=== PATIENT | female | born 1990 | race Caucasian/White ===

== ENCOUNTER → 2018-12-17 12:20 | Outpatient (CLI) | payer MEDICAID, SELFPAY ==
[2018-12-17 12:15] VITALS: BMI 29.9
[2018-12-17 13:14] LABS: Absolute Lymphocyte Count 1.73 X10^3/ul (0.83-4.51); Basophil# 0.01 X10^3/uL; Basophil% 0.1 % (0-1); Eosinophil# 0.12 X10^3/uL; Eosinophils% 1.4 % (0-5); Hemoglobin 11.4 g/dl (12.0-15.0); Lymphocyte # 1.73 X10^3/ul (4.0); Lymphocyte % 20.4 % (19-41); Mean Corp Hgb Conc 33.5 g/gl (32-36); Mean Corpuscular Volume 86.5 fL (81-99); Mean Platelet Vol. 9.9 fl (6.2-12.0); Monocyte# 0.62 X10^3/uL; Monocyte% 7.3 % (0-10); Neutrophil # 5.98 X10^3/uL (2.7-7.7); Neutrophil % 70.7 % (47-70); Platelet Count 246 K/mm3 (150-450); RBC Distribution Width CV 12.5 % (11.6-14.6); Red Blood Count 3.93 M/mm3 (4.2-5.4); White Blood Count 8.5 K/mm3 (4.4-11.0)
[2018-12-17 13:15] LABS: POSITIVE COUNT NO; POSITIVE DIFFERENTIAL NO; POSITIVE MORPHOLOGY NO
[2018-12-17 14:29] LABS: HIV - WCH Non-Reactive (Nonreactive)
[2018-12-17 20:00] LABS: Chlamydia Trachomatis by PCR Negative (Negative); Neisserai gonorrhoeae by PCR Negative (Negative); Probe Check PASS; Sample Adequacy Control PASS; Specimen Processing Control PASS
[2018-12-19 03:40] LABS: Rapid Plasmin Reagin (RPR) NONREACTIVE (NONREACTIVE)
[2018-12-19 12:13] LABS: HEPATITIS B SURFACE AG Negative (Negative)
== END ==
PROVIDERS: Family Provider Nurse Practitioner Family; PCP Nurse Practitioner Family; Referring Provider Nurse Practitioner Women's Health; Visit Provider Nurse Practitioner Women's Health
DX: Z34.80 Encounter for supervision of other normal pregnancy, unspecified trimester (principal)
CPT/HCPCS: 36415; 85025; 86592; 86703; 86762; 86850; 86900; 87086; 87088; 87340; 87491; 87591

== ENCOUNTER → 2019-06-12 15:44 | Outpatient (CLI) | payer MEDICAID, SELFPAY ==
[2019-06-12 15:36] VITALS: BMI 29.9
[2019-06-12 16:24] LABS: Absolute Lymphocyte Count 2.61 X10^3/uL (0.83-4.51); Absolute Neutrophil Count 8.3 X10^3/uL (2.0-7.7); Basophil# 0.02 X10^3/uL; Basophil% 0.2 % (0-1); Eosinophils% 2.4 % (0-5); Hematocrit 34.6 % (37-47); Hemoglobin 11.5 g/dL (12.0-15.0); Lymphocyte # 2.61 X10^3/ul (4.0); Lymphocyte % 21.2 % (19-41); Mean Corp Hgb Conc 33.2 g/dL (32-36); Mean Corpuscular Hgb 30.1 pg (27.0-32.0); Mean Corpuscular Volume 90.6 fL (81-99); Mean Platelet Vol. 10.2 fl (6.2-12.0); Monocyte# 0.91 X10^3/uL; Monocyte% 7.4 % (0-10); NRBC Flagged by Analyzer 0 % (0-5); Neutrophil # 8.34 X10^3/uL (2.7-7.7); Neutrophil % 67.9 % (47-70); Platelet Count 286 K/mm3 (150-450); RBC Distribution Width CV 13.1 % (11.6-14.6); RBC Distribution Width SD 42.6 fl (35.1-43.9); Red Blood Count 3.82 M/mm3 (4.2-5.4); White Blood Count 12.3 K/mm3 (4.4-11.0)
[2019-06-12 17:11] LABS: Hemoglobin A1c 5.5 % (4.2-6.3)
== END ==
PROVIDERS: Family Provider Nurse Practitioner Family; PCP Nurse Practitioner Family; Referring Provider Obstetrics & Gynecology; Visit Provider Obstetrics & Gynecology
DX: O36.60X0 Maternal care for excessive fetal growth, unspecified trimester, not applicable or unspecified (principal); Z3A.00 Weeks of gestation of pregnancy not specified
CPT/HCPCS: 36415; 83036; 85025

== ENCOUNTER → 2019-07-10 17:03 | Outpatient (CLI) | payer MEDICAID, SELFPAY ==
[2019-07-10 15:24] VITALS: BMI 29.9
== END ==
PROVIDERS: Family Provider Nurse Practitioner Family; PCP Nurse Practitioner Family; Referring Provider Obstetrics & Gynecology; Visit Provider Obstetrics & Gynecology
DX: Z34.93 Encounter for supervision of normal pregnancy, unspecified, third trimester (principal); Z3A.38 38 weeks gestation of pregnancy
CPT/HCPCS: 87081

== ENCOUNTER 2019-07-13 15:00 | Outpatient (RCR) | payer MEDICAID, SELFPAY ==
[2019-06-12 15:36] VITALS: BMI 29.9
== END 2019-07-16 23:59 ==
LOC: DC 15:00
PROVIDERS: Family Provider Nurse Practitioner Family; PCP Nurse Practitioner Family; Visit Provider Obstetrics & Gynecology
DX: Z71.3 Dietary counseling and surveillance (principal); O24.419 Gestational diabetes mellitus in pregnancy, unspecified control; Z3A.00 Weeks of gestation of pregnancy not specified
CPT/HCPCS: 97802; G0108

== ENCOUNTER → 2019-07-15 13:55 | Outpatient (CLI) | payer MEDICAID, SELFPAY ==
[2019-07-10 15:24] VITALS: BMI 29.9
--- NOTE | 2019-07-15 13:57 | US_ITS ---
STUDY: SECOND AND THIRD TRIMESTER OBSTETRICAL ULTRASOUND REASON FOR EXAM: Female, 28 years old. growth LMP: 10/16/2018 TECHNIQUE: Transabdominal TECHNICAL QUALITY: Adequate. PRIOR ULTRASOUND: None. FINDINGS: There is a single intrauterine fetus. The fetus is in a cephalic presentation. There is demonstrated cardiac activity with a heart rate of 160 bpm. There is a normal amniotic fluid volume. The largest amniotic fluid pocket measures 5.9 cm. The amniotic fluid index (RANJEET) is 18.4 cm. The placenta is anterior in location and is not low lying. There are Grade 2 placental changes. The cervix isn't visualized. BIOMETRY: BPD: 8.99 cm: 37 weeks, 2 days HC: 32.37 cm: 37 weeks, 4 days AC: 36.86 cm: 40 weeks, 5 days FL: 7.52 cm: 30 weeks, 3 days CI: 82% FL/BPD: 84% FL/AC: 20% HC/AC: 0.88 age by current US: 37 weeks, 3 days. DENNIS by current US: 08/02/2019. Estimated weight: 3717 grams, +/- 550 grams, 78 %. Age by LMP: 38 weeks, 5 days. DENNIS by LMP: 07/24/2019. US/OB Limited With Biometrics IMPRESSION: Single live intrauterine gestation at approximately 37 weeks and 3 days based on the current ultrasound. Electronically Signed: Damien Lucila, at 21:24 EDT Tel , Service support ,
== END ==
PROVIDERS: Family Provider Nurse Practitioner Family; PCP Nurse Practitioner Family; Referring Provider Obstetrics & Gynecology; Visit Provider Obstetrics & Gynecology
DX: O24.419 Gestational diabetes mellitus in pregnancy, unspecified control (principal); Z3A.00 Weeks of gestation of pregnancy not specified
CPT/HCPCS: 76816

== ENCOUNTER 2019-07-29 18:05 | Inpatient (IN) | payer MEDICAID, SELFPAY ==
[2019-07-29 14:22] VITALS: BMI 29.9
[2019-07-29 19:01] LABS: Bedside Glucose 104 mg/dL (70-110)
[2019-07-29 19:09] LABS: Absolute Neutrophil Count 8.2 X10^3/uL (2.0-7.7); Basophil# 0.04 X10^3/uL; Basophil% 0.3 % (0-1); Eosinophil# 0.45 X10^3/uL; Eosinophils% 3.6 % (0-5); Hematocrit 36.6 % (37-47); Hemoglobin 12.5 g/dL (12.0-15.0); Lymphocyte % 22.5 % (19-41); Mean Corp Hgb Conc 34.2 g/dL (32-36); Mean Corpuscular Hgb 29.8 pg (27.0-32.0); Mean Corpuscular Volume 87.1 fL (81-99); Mean Platelet Vol. 11.4 fl (6.2-12.0); Monocyte# 0.84 X10^3/uL; Monocyte% 6.8 % (0-10); NRBC Flagged by Analyzer 0 % (0-5); Neutrophil # 8.22 X10^3/uL (2.7-7.7); Neutrophil % 66.2 % (47-70); Platelet Count 254 K/mm3 (150-450); RBC Distribution Width SD 43.6 fl (35.1-43.9); White Blood Count 12.4 K/mm3 (4.4-11.0)
[2019-07-29 19:37] VITALS: BMI 35.9
[2019-07-29 20:45] LABS: Bedside Glucose 102 mg/dL (70-110)
--- NOTE | 2019-07-29 21:16 | HP.PCM_ITS ---
- Problem List (1) Active labor at term Status: Acute (2) Gestational diabetes Status: Acute (3) Status: Acute Qualifiers: Comment: carrier, ntd, and Genetic testing declined Normal anatomy (4) Supervision of other normal Status: Acute Comment: PRR DENNIS 07/24/19 PC Naida Spouse Justino home delivery, co-care with rubber goods inspector tester. History and Physical Date of Admission: 07/29/19 Intake Vital Signs 07/29/19 Body Mass Index (BMI) 29.9 07/29/19 Height 5 ft 0.5 in 07/29/19 Weight: 192 lb 07/29/19 Body Mass Index (BMI) 36.8 07/29/19 Blood Pressure 130/80 H Intake Visit Reasons: 40 week OB Chief Complaint: est ob Demolition Engineer Required: No Is patient in pain?: No Allergies No Known Allergies Allergy (Verified 07/29/19 14:21) Medications folic acid 800 mcg tablet 0.8 mg PO DAILY 12/17/18 [History Confirmed 07/29/19] ferrous sulfate 325 mg (65 mg iron) tablet 325 mg PO DAILY tab 02/18/19 [History Confirmed 07/29/19] blood sugar diagnostic strips See Rx Instructions .ROUTE .MEDSUPPLY #100 ea 05/01/19 [Rx Confirmed 07/29/19] Last Menstral Period: 10/09/18 Zika: Zika virus screening: Negative : No PFSH PFSH Family History Father Psoriatic arthritis Grandmother Diabetes Sister Ovarian cancer Social History (Updated 07/29/19 @ 21:04 by Kristel Main MD) number of children: 1 current occupational status: unemployed Smoking Status: Never smoker alcohol intake: never substance use type: does not use seatbelt use: always do you feel safe at home: Yes additional social history: to Justino - employed at [employer] Pregancy History 2 Elective abortions 0 Hx Para 1 Spontaneous abortions 0 Hx # Term Pregnancies 1 Ectopic pregnancies 0 Hx # Pregnancies 0 Multiple births 0 # of living children 1 Past Pregnancies Del. Date Name GA/Weeks Outcome Route Bth Weight Infant Gen Labor Lgth Anesthesia Del Locatn Provider FOB 03/14/18 Naida 40 live - full term 6'5.8 Female 7 hrs none Rachael Young, rubber goods inspector tester HPI 40 week OB: Details: MAJOR GONZALES is a 28 year old who presents for routine OB visit. OB Visit DENNIS Calculator Estimated Delivery Date Method Current WG Current Estimate 07/24/19 Ultrasound #1 40w 5d Other Estimates 07/16/19 LMP (Certain) 41w 6d Expected Delivery Route/Plan - cocare with Inna Walsh, planning home delivery Labor Preferences- labor support person: justino pain management options preferred: [] cut cord/dad catch: [] : [] PP control planned: [] discussed possible routes of delivery and associated risks: [] special requests: [] Specific Issue/Plans flu vaccine: declined tdap vaccine: declined declined glucola screening rhogam: na LARC form signed: [] Problem list reviewed and updated with the most current plan of care details and appropriate orders placed. Relevant counseling for the gestational age provided. Continue routine care and follow up unless otherwise noted in visit notes/problem list details Initial Weight: Not Recorded Date EGA Weight BP Urine Prot Glucose FHR FuHt Pres Mov CTX Dilation Effaced St Visit Note 01/22/19 13w 6d 162 lb 122/72 Negative Negative 150 no vb lof 02/18/19 17w 5d 164 lb 6 oz 118/70 Negative Negative 147 Had brown discharge 2 wk ago after intercourse. None since. Now plans home with Inna Walshdonny 03/31/19 23w 4d 170 lb 120/72 Negative Negative 140 no vb lof good fm no regular ctx 05/01/19 28w 0d 170 lb 102/80 Negative Negative 140 no vb lof good fm no regular ctx 06/12/19 34w 0d 184 lb 132/78 Negative Negative 140 36 measuring ahead- previously declined glucose testing recommend testing again- check cbc and hg a1c, check home blood sugars 07/10/19 38w 0d 190 lb 106/60 Negative Negative 145 38 counseling provided to patient about diabetes diagnosis and recommendation for diet and blood sugar checks. discussed risks of diabetes and complications at delivery and of going postdates. I recommend growth us and no longer than 41 weeks. patient states she would be comfortable with going past 41 weeks and I discussed that this would be against medical advice and I would not support it. I discussed increased risks of home due to diabetes diagnosis both for her and baby. patient and voiced good understanding 07/29/19 40w 5d 192 lb 130/80 Negative Negative 125 41 recommend IOL 40 weeks Visit Notes Visit Date: 07/29/19 ??recommend IOL 40 weeks ??Kristel Main MD on 07/29/19 Visit Date: 07/10/19 ??counseling provided to patient about diabetes diagnosis and recommendation for diet and blood sugar checks. discussed risks of diabetes and complications at delivery and of going postdates. I recommend growth us and no longer than 41 weeks. patient states she would be comfortable with going past 41 weeks and I discussed that this would be against medical advice and I would not support it. I discussed increased risks of home due to diabetes diagnosis both for her and baby. patient and voiced good understanding ??Kristel Main MD on 07/17/19 Visit Date: 06/12/19 ??measuring ahead- previously declined glucose testing recommend testing again- check cbc and hg a1c, check home blood sugars ??Kristel Main MD on 06/12/19 Visit Date: 05/01/19 ??no vb lof good fm no regular ctx ??Kristel Main MD on 05/01/19 Visit Date: 03/31/19 ??no vb lof good fm no regular ctx ??Kristel Main MD on 03/31/19 Visit Date: 02/18/19 ??Had brown discharge 2 wk ago after intercourse. None since. Now plans home with donny Stanley ??GEORGETTE Nguyễn on 02/18/19 Visit Date: 01/22/19 ??no vb lof ??Kristel Main MD on 01/22/19 ACOG First Trimester First Trimester: Desire for , Anticipated Course of Care, Toxoplasmosis Precations, Use of Any medications, Sexual activity, Exercise, Sauna/Hot tub use, Seat Belt use, , Indications for US and Scr eening for Aneuploidy; discussed Alcohol, discussed Tobacco Cessation, discussed Illicit/Recreational Drug/Substance Use, discussed Intimate Partner Violence, discussed Unstable Housing or discussed Environmental/Work Hazards Second Trimester Second Trimester: Signs and Symptoms of Labor, Selecting a care provider, Reproductive Life Planning, Care Planning, Tobacco Cessation, Depression/Anxiety and Intimate Partner Violence Third Trimester Third Trimester: Pain Management Plans, Labor support person(s), Immediate Post Larc, Movement Monitoring and Infant Feeding Yes ; discussed Trial of Labor after Counseling or discussed Circumcision preference Diagnostics Diagnostics Diagnostics Blood Type B POSITIVE 07/29/19 Antibody Screen NEGATIVE 07/29/19 HIV 1&2 Antibody Non-Reactive (Nonreactive) 12/17/18 Rubella IgG Antibody 263.0 IU/mL 12/17/18 Hgb 12.5 g/dL (12.0-15.0) 07/29/19 Hct 36.6 % (37-47) L 07/29/19 RPR NONREACTIVE (NONREACTIVE) 12/17/18 Details: HIV: Urine Culture: Sequential Screen: NIPT Screen: ROS Const Reports system reviewed and no additional complaints, except as docu Card Reports system reviewed and no additional complaints, except as docu Resp Reports system reviewed and no additional complaints, except as docu GI Reports system reviewed and no additional complaints, except as docu, Reports nausea Reports system reviewed and no additional complaints, except as docu Musc Reports system reviewed and no additional complaints, except as docu Exam Const General: cooperative, healthy appearing, comfortable, anxious [facility] Head: normal to inspection Nose: external nose normal Face and sinus: normal facial exam Neck Neck: normal visual inspection, full ROM, no lymphadenopathy Thyroid: thyroid normal Chest Chest palpation & inspection: normal inspection of the chest Resp Effort & Inspection: normal respiratory effort GI Inspection: normal to inspection Palpation: soft, other (gravid uterus) Other: vertex and appropriate size for gestational age Other: Cervical Exam: Extrem General: pedal edema Results [id number] Office Urine Glucose Negative Last Edit by Tiffanie Rossi on 07/29/19 14:2 6 Office Urine Protein Negative Last Edit by Tiffanie Rossi on 07/29/19 14:2 6 Assessment & Plan Problems 1. Gestational diabetes O24.419 2. 40 weeks gestation of Z3A.40 3. Supervision of other normal Z34.80 IAL 5-6 cm Orders Orders: POC Urinalysis 2 Dip (Clinic) Today Coding Level of Care Code Off vis,est,level 3 Diagnoses Gestational diabetes O24.419 40 weeks gestation of Z3A.40 ??Weeks of gestation: 40 weeks Supervision of other normal Z34.80
[2019-07-29 22:05] LABS: Bedside Glucose 128 mg/dL (70-110)
--- NOTE | 2019-07-29 22:29 | PCM.OPRPT ---
Problem List (1) Active labor at term Status: Acute (2) Gestational diabetes Status: Acute (3) Status: Acute Qualifiers: Comment: carrier, ntd, and Genetic testing declined Normal anatomy (4) Supervision of other normal Status: Acute Comment: PRR DENNIS 07/24/19 PC Naida Spouse Justino home delivery, co-care with kier drier. Vaginal Delivery Maternal Presentation: Active Labor ial 39w5d Medical Reason for Induction: Maternal Medical Condition: list: - diabetes diet controlled Amniotic Membrane Rupture Type: Spontaneous Amniotic Fluid Description: Clear Final DENNIS: 07/24/19 Gestational age: 40 Weeks and 5 Days Date of Procedure: 07/29/19 Pre-Operative Diagnosis: ial Post-Operative Diagnosis: same Surgery/ Procedure Performed: Spontaneous Vaginal Delivery Type of Anesthesia: None Description of Procedure: Patient began pushing and delivered the head in the GARRETT presentation. The head was delivered atraumatically. The anterior and posterior shoulders delivered without complication followed by the rest of the and the was placed on the maternal abdomen. Delayed cord clamping was employed for approximately 60 seconds. Cord was clamped and cut and gentle traction was applied to the cord and the placenta delivered spontaneously immediately following it was noted to be intact with three-vessel cord. The perineum and vagina were inspected and noted to have no laceration. EBL was 200 cc. Patient and tolerated delivery well. Presentation: GARRETT Placental Delivery Description: Spontaneous Placenta Disposition: [facility] Cord Vessel Description: 3 Vessels Cord Entanglement: None Estimated Blood Loss: 200 A gender: Female Episiotomy Description: None Laceration: None Medications given after delivery: IV Pitocin Complications: None Multi Select Codes - Urinary/Genital Urinary/Genital CPT Codes: 30146 Vaginal Delivery [facility] pkg
[2019-07-30 00:41] LABS: Bedside Glucose 148 mg/dL (70-110)
[2019-07-30] MEDS: Naproxen 250 MG Tablet 500 MG PO ×2 (03:10→17:38)
[2019-07-30 04:13] VITALS: BP 90/52; PULSE 62; RESP 18; TEMP 36.6; O2SAT 96
[2019-07-30 06:50] VITALS: BP 102/58
[2019-07-30 07:06] LABS: Bedside Glucose 98 mg/dL (70-110)
--- NOTE | 2019-07-30 07:58 | PCM.PN.OB ---
Patient Problems: Active and Suspected Problems (Last Reviewed 07/29/19 @ 14:22 by Tiffanie Rossi) Active labor at term (Acute) Subjective: doing well no complaints pain controlled no CP SOB N V ambulating well tolerating po lochia moderate, going well - Physical Exam Vitals/I&O's: Vital Signs Temp Pulse Resp BP Pulse Ox 98 F 62 18 102/58 L 96 07/30/19 04:13 07/30/19 04:13 07/30/19 04:13 07/30/19 06:50 07/30/19 04:13 Oxygen Delivery Method Room Air Weight: 187 lb Body Mass Index (BMI) 35.9 Intake and Output for Last 24 Hours 07/28/19 07/29/19 07/30/19 23:59 23:59 23:59 Output Total 800 / 800 500 / 500 Balance -800 / -800 -500 / -500 General: Alert, Oriented x3 Abdomen: Soft, Non Tender, - - FF below U Laboratory Results 07/29/19 18:50: WBC 12.4 H, RBC 4.20, Hgb 12.5, Hct 36.6 L, MCV 87.1, MCH 29.8, MCHC 34.2, RDW Std Deviation 43.6, RDW Coeff of Geremias 14.0, Plt Count 254, MPV 11.4, Immature Gran % (Auto) 0.600, Neut % (Auto) 66.2, Lymph % (Auto) 22.5, Caldwell % (Auto) 6.8, Eos % (Auto) 3.6, Baso % (Auto) 0.3, Absolute Neuts (auto) 8.2 H, Absolute Lymphs (auto) 2.80, Nucleated RBC % 0 07/29/19 18:50: Blood Type B POSITIVE, Antibody Screen NEGATIVE 07/29/19 18:56: POC Glucose 104 07/29/19 20:37: POC Glucose 102 07/29/19 21:57: POC Glucose 128 H 07/30/19 00:34: POC Glucose 148 H 07/30/19 06:37: POC Glucose 98 Current Medications Acetaminophen (Tylenol) 1,000 mg PO Q8H PRN PRN PRN Reason: Pain Score 1-3/10 Bisacodyl (Dulcolax) 10 mg RECTAL UD PRN PRN Reason: If no BM Dextrose (D50w Syringe) 0 gm IV X1 PRN; Protocol PRN Reason: Hypoglycemia Dibucaine (Dibucaine) 1 applic TOPICAL TID PRN PRN; Protocol PRN Reason: Discomfort Glucagon () 1 mg IM .X1 PRN PRN Reason: Hypoglycemia Hydrocortisone (Hytone) 1 applic TOPICAL TID PRN PRN; Protocol PRN Reason: Discomfort Methylergonovine Maleate (Methergine) 0.2 mg IM X1 PRN PRN Reason: Excess bleeding/uterine atony Naproxen (Naprosyn) 500 mg PO Q8H PRN PRN PRN Reason: Pain Score 1-3/10 Last Admin: 07/30/19 03:10 Dose: 500 mg Documented by: Ondansetron HCl (Zofran) 4 mg IV Q4H PRN PRN PRN Reason: Nausea Oxycodone HCl (Oxyir) 5 - 10 mg PO Q4H PRN PRN PRN Reason: Pain Score 4-10/10 Senna/Docusate Sodium (Senokot-S, Jo-Colace) 1 - 2 tablet PO DAILY PRN PRN PRN Reason: Constipation Simethicone (Mylicon) 80 mg PO PCHS PRN PRN Reason: Indigestion/Stomach pain Sodium Chloride () 5 - 15 ml IV UD PRN PRN Reason: SALINE FLUSH Medical Necessity - Tobacco Use Smoking Status: Never smoker Assessment/Plan All Active Problems (Last Reviewed 07/29/19 @ 14:22 by Tiffanie Rossi) Active labor at term (Acute) Gestational diabetes (Acute) (Acute) Supervision of other normal (Acute) s/p PPD # 1 1. routine post delivery care 2. breast feeding- support given 3. rh positive 4. rubella immune 5. last glucose reading WNL
[2019-07-30 08:45] VITALS: BP 108/64; PULSE 70; RESP 16; TEMP 36.5
[2019-07-30 11:31] VITALS: BP 112/63; RESP 14; TEMP 36.9
[2019-07-30] MEDS: Senna/Docusate Sodium 1 Tablet PO (13:08)
[2019-07-30] MEDS: Acetaminophen 500 MG Tablet 1000 MG PO (13:08)
[2019-07-30 16:05] VITALS: BP 98/54; PULSE 64; RESP 12; TEMP 36.7
--- NOTE | 2019-07-30 17:04 | CASEMGMT ---
Social Work Assessment Labor and Delivery Unit Date of Referral: 07.30.2019 Time of Referral: 343 Referred By: Dr. Main Date of Intervention: 07.30.2019 Time of Intervention: 1600 Reason for Referral: resources History obtained from: medical records, mother of baby (MOB) Lea Nguyễn, and Father of baby (FOB) Justino Nguyễn Household composition: MOB, FOB, and their older child. Plan for baby to live in this home. Home situation is reported to be safe and adequate. Patient's parent/guardian status: ENDY, age 28, is to FOB for the last 2 years. No reports of or indication of abuse or neglect in the home. MOB and FOB share 2 children now: Naida (born 03.14.2018) and Klaudia (born 07.29.2019). MOB and FOB report closely spaced pregnancies were planned, and the hope is to have 6 children. Medical History: ENDY is G2, P1 to 2 after delivering Klaudia. MOB started care with Dr. Main at 13 weeks and saw the OBGYN intermittently during , seeing clay products glazer Inna Walsh during the other times. MOB reports to have had some gestational diabetes this , and as a result of this the industrial spraypainter has suggested MOB give herself some more time between pregnancies (about 2 years) before conceiving again. Klaudia was born term, weighing 7 pounds 8 ounces. Apgars 8 and 9 at 1 and 5 minutes of life. Educational Status: ENDY graduated high school and then went on to receive an Associates Degree in mesotherapy. MOB denies any learning issues or concerns with reading and writing. Financial Status: ENDY is not currently working. FOB works fulltime at [employer] on first shift. Supplies: MOB and FOB report to have needed infant supplies including a bassinet for sleeping, car seat, clothing, diapers, wipes, and breast pump. Childcare/Caregiver(s): MOB is primary with help from FOB when home. Transportation: No reported issues. Programs/Agencies Involved: Medicaid through [employer]. Active with WIC. MOB declines [facility] referral but accepting of information on said program. Children Services/Legal Issues: None reported. Behavioral Health Issues: Mental Health History: MOB denies any history of depression, anxiety, or depression. MOB reports may have had periods of time where felt some different emotions., but nothing that sought out treatment for, and denies any depression or anxiety. Substance Use History: MOB denies any history of substance use issues for self. No tobacco use. Family History: Not discussed. FOB denies any substance use issues for self. FOB reports may have been worried after the first baby due to being a first-time dad and unsure as to what to expect. FOB reports to be feeling more confident the second time around. Drug Screens: No drug screens noted for MOB prenatally or for baby at delivery. Family/Social Stressors: Closely spaced pregnancies, though MOB and FOB both reports this was planned. MOB reports would like to have children close together so can get this part of life done with and not have to keep extending it for years. MOB reports she has been advised to wait 2 years for the next . MOB reports she will try to hold off as long as she can, maybe a year or so, but not sure she will be willing to hold off for two. FOB interjected that he wants MOB to be safe and healthy, so would support waiting if this is in the best interest in MOB?s overall health. No other stressors identified at this time. Support Systems: MOB reports PAWAN is a strong support. Family is involved with [place] [employer], a jewish synagogue (FOB?s family is of Fazal background and MOB is from a [employer] background). MOB reports to have her family close by and they are supportive. PAWAN has brother who lives 20 minutes away and is supportive, taking care of Naida while parents are at the hospital. Depression/Shaken Baby/Safe Sleeping: Information given on shaken baby prevention, safe sleeping, and mood and anxiety disorders. ASSESSMENT: Met with MOB and FOB together. Initially upon social media campaign manager?s arrival there were visitors from the family?s synagogue present, but visitors offered to leave so social media campaign manager could visit. MOB and FOB both cooperative and pleasant during social work visit. MOB would at times take time to answer questions, and would have to focus on what she was saying to which MOB self-identified that she was feeling tired. MOB was logical in thought process and did have well thought out responses, especially about care and experience. MOB talked of going through the grieving process early on in having to accept that a hospital delivery may be necessary. MOB reports to feel that her experience with [facility] labor and delivery has been positive, glad she has a relationship with Dr. Main prior to coming in, as well as appreciates that could have her industrial spraypainter present and supported at time of delivery. MOB and FOB both report to have needed supplies, reports to have adequate support from family and friends. FOB will be home from work for a short time to help out. MOB and FOB accepted community resource list of agencies that may be helpful. Educated family to the food card through [employer] and encouraged to consider this as an option to look into should income become tight. MOB and FOB deny other needs for home going. Observed FOB to be respectful to MOB and contributed to conversation at appropriate times. Observed both parents handle the baby, and both were gentle and appropriate. MOB and FOB both listed to education on depression and anxiety, as well as that both moms and dads can be impacted by said topic. PLAN: MOB and baby to home when ready for discharge. [facility] resource information given as well as mood and anxiety disorder resources. No other services requested or indicated. -LEONOR Arnett, [employer]
[2019-07-30 20:23] VITALS: BP 130/77; PULSE 81; RESP 16; TEMP 36.9
[2019-07-31] VITALS: BP 126/71; PULSE 57; RESP 16; TEMP 37.2
[2019-07-31 03:59] VITALS: BP 101/59; PULSE 63; RESP 16; TEMP 36.8
--- NOTE | 2019-07-31 07:43 | PCM.PN.OB ---
Patient Problems: Active and Suspected Problems (Last Reviewed 07/29/19 @ 14:22 by Tiffanie Rossi) Active labor at term (Acute) Subjective: doing well no complaints pain controlled no CP SOB N V ambulating well tolerating po lochia moderate, going well - Physical Exam Vitals/I&O's: Vital Signs Temp Pulse Resp BP Pulse Ox 98.3 F 63 16 101/59 L 96 07/31/19 03:59 07/31/19 03:59 07/31/19 03:59 07/31/19 03:59 07/30/19 04:13 Oxygen Delivery Method Room Air Weight: 187 lb Body Mass Index (BMI) 35.9 Intake and Output for Last 24 Hours 07/29/19 07/30/19 07/31/19 23:59 23:59 23:59 Output Total 800 / 800 500 / 500 Balance -800 / -800 -500 / -500 General: Alert, Oriented x3 Abdomen: Soft, Non Tender, - - FF below U Current Medications Acetaminophen (Tylenol) 1,000 mg PO Q8H PRN PRN PRN Reason: Pain Score 1-3/10 Last Admin: 07/30/19 13:08 Dose: 1,000 mg Documented by: Bisacodyl (Dulcolax) 10 mg RECTAL UD PRN PRN Reason: If no BM Dextrose (D50w Syringe) 0 gm IV X1 PRN; Protocol PRN Reason: Hypoglycemia Dibucaine (Dibucaine) 1 applic TOPICAL TID PRN PRN; Protocol PRN Reason: Discomfort Glucagon () 1 mg IM .X1 PRN PRN Reason: Hypoglycemia Hydrocortisone (Hytone) 1 applic TOPICAL TID PRN PRN; Protocol PRN Reason: Discomfort Methylergonovine Maleate (Methergine) 0.2 mg IM X1 PRN PRN Reason: Excess bleeding/uterine atony Naproxen (Naprosyn) 500 mg PO Q8H PRN PRN PRN Reason: Pain Score 1-3/10 Last Admin: 07/30/19 17:38 Dose: 500 mg Documented by: Ondansetron HCl (Zofran) 4 mg IV Q4H PRN PRN PRN Reason: Nausea Oxycodone HCl (Oxyir) 5 - 10 mg PO Q4H PRN PRN PRN Reason: Pain Score 4-10/10 Senna/Docusate Sodium (Senokot-S, Jo-Colace) 1 - 2 tablet PO DAILY PRN PRN PRN Reason: Constipation Last Admin: 07/30/19 13:08 Dose: 2 tablet Documented by: Simethicone (Mylicon) 80 mg PO HS PRN PRN Reason: Indigestion/Stomach pain Sodium Chloride () 5 - 15 ml IV UD PRN PRN Reason: SALINE FLUSH Medical Necessity - Tobacco Use Smoking Status: Never smoker Assessment/Plan All Active Problems (Last Reviewed 07/29/19 @ 14:22 by Tiffanie Rossi) Active labor at term (Acute) Gestational diabetes (Acute) (Acute) Supervision of other normal (Acute) s/p PPD # 2 1. routine post delivery care 2. breast feeding- support given 3. rh positive 4. rubella immune 5. home today
--- NOTE | 2019-07-31 07:44 | DCINST_ITS ---
Additional Instructions: If you experience any of the following, contact your healthcare provider. * Bleeding that soaks a pad every hour for 2 hours * Fever 100.4 or higher * Unrelieved incision or abdominal pain * Swelling, redness, discharge or bleeding from your incision or episiotomy site * Your incision begins to separate * Problems urinating (including inability to urinate or burning while urinating). * Visual changes * Severe headache * Flu-like symptoms * Pain or redness in one of both of your breasts * Pain, warmth, tenderness or swelling in your legs, especially the calf area * Frequent nausea and vomiting * Symptoms of depression or anxiety If you experience any of the following, call 911 or go to the nearest Emergency Room. * Chest pain * Problems breathing * Seizure activity * Partial or complete paralysis of a body part, slurred speech, weakness or drooping of the face, or a sudden inability to walk or hold your balance Allergies/Adverse Reactions: Allergies No Known Allergies Allergy (Verified 07/29/19 14:21) Medications to take at Discharge folic acid 800 mcg tablet 0.8 mg PO DAILY 12/17/18 ferrous sulfate 325 mg (65 mg iron) tablet 325 mg PO DAILY tab 02/18/19 blood sugar diagnostic strips See Rx Instructions .ROUTE .MEDSUPPLY #100 ea 05/01/19 Primary Care Physician: Roman Mott NP-C [Primary Care Provider] - Test Results: Test results from this visit will be discussed in further detail at your follow- up appointment, if applicable.
--- NOTE | 2019-07-31 07:44 | PCM.DCVAG ---
Additional Instructions: If you experience any of the following, contact your healthcare provider. Bleeding that soaks a pad every hour for 2 hours Fever 100.4 or higher Unrelieved incision or abdominal pain Swelling, redness, discharge or bleeding from your incision or episiotomy site Your incision begins to separate Problems urinating (including inability to urinate or burning while urinating). Visual changes Severe headache Flu-like symptoms Pain or redness in one of both of your breasts Pain, warmth, tenderness or swelling in your legs, especially the calf area Frequent nausea and vomiting Symptoms of depression or anxiety If you experience any of the following, call 911 or go to the nearest Emergency Room. Chest pain Problems breathing Seizure activity Partial or complete paralysis of a body part, slurred speech, weakness or drooping of the face, or a sudden inability to walk or hold your balance Allergies/Adverse Reactions: Allergies No Known Allergies Allergy (Verified 07/29/19 14:21) Medications to take at Discharge folic acid 800 mcg tablet 0.8 mg PO DAILY 12/17/18 ferrous sulfate 325 mg (65 mg iron) tablet 325 mg PO DAILY tab 02/18/19 blood sugar diagnostic strips See Rx Instructions .ROUTE .MEDSUPPLY #100 ea 05/01/19 Primary Care Physician: Roman Mott, KENNY-C [Primary Care Provider] - Test Results: Test results from this visit will be discussed in further detail at your follow-up appointment, if applicable.
[2019-07-31 08:45] VITALS: BP 111/66; PULSE 61; RESP 24; TEMP 37.2; O2SAT 95
[2019-07-31] MEDS: Naproxen 250 MG Tablet 500 MG PO (08:45)
[2019-07-31 14:00] VITALS: BP 110/66; PULSE 67; TEMP 36.5; O2SAT 96
--- NOTE | 2019-08-04 11:49 | NURSING ---
follow up call done, patient states she is doing well, was satisfied with her care, denies complaints or questions at this time
== END 2019-07-31 14:40 | disposition home or self-care (01) | DRG 560 ==
PROVIDERS: Admitting Provider Obstetrics & Gynecology; Family Provider Nurse Practitioner Family; PCP Nurse Practitioner Family; Referring Provider Obstetrics & Gynecology; Visit Provider Obstetrics & Gynecology
DX: O24.420 Gestational diabetes mellitus in childbirth, diet controlled (principal); Z3A.40 40 weeks gestation of pregnancy; Z37.0 Single live birth
CPT/HCPCS: 59050; 82962; 85025; 86850; 86900; 86901; 99218; G0378

== ENCOUNTER → 2020-10-27 10:12 | Outpatient (CLI) | payer MEDICAID, SELFPAY ==
[2020-10-27 09:42] VITALS: BMI 25.7
[2020-10-27 10:52] LABS: Absolute Lymphocyte Count 1.95 X10^3/uL (0.83-4.51); Absolute Neutrophil Count 5.1 X10^3/uL (2.0-7.7); Basophil# 0.03 X10^3/uL; Basophil% 0.4 % (0-1); Eosinophil# 0.16 X10^3/uL; Eosinophils% 2.1 % (0-5); Hematocrit 37.1 % (37-47); Hemoglobin 12.5 g/dL (12.0-15.0); Lymphocyte # 1.95 X10^3/ul (4.0); Lymphocyte % 25.5 % (19-41); Mean Corp Hgb Conc 33.7 g/dL (32-36); Mean Corpuscular Hgb 29.8 pg (27.0-32.0); Mean Corpuscular Volume 88.3 fL (81-99); Mean Platelet Vol. 9.4 fl (6.2-12.0); Monocyte# 0.41 X10^3/uL; Monocyte% 5.4 % (0-10); NRBC Flagged by Analyzer 0 % (0-5); Neutrophil # 5.08 X10^3/uL (2.7-7.7); Neutrophil % 66.3 % (47-70); Platelet Count 305 K/mm3 (150-450); RBC Distribution Width CV 12.4 % (11.6-14.6); RBC Distribution Width SD 40.4 fl (35.1-43.9); White Blood Count 7.7 K/mm3 (4.4-11.0)
[2020-10-27 11:21] LABS: Glucose Challenge Gest 1H 50g 116 mg/dL (70-140)
[2020-10-27 12:04] LABS: HIV - WCH Non-Reactive (Nonreactive); Hepatitis B Surface Antigen Non-Reactive (Nonreactive); Hepatitis C Antibody Non-Reactive (Nonreactive); Rubella IgG Reactive (Nonreactive)
[2020-10-27 14:06] LABS: Amphetamine Urine VISTA NEGATIVE (<1000 ng/mL); Barbiturate Urine VISTA NEGATIVE (< 200 ng/mL); Benzodiazepine Urine VISTA NEGATIVE (< 200 ng/mL); Cocaine Urine VISTA NEGATIVE (< 300 ng/mL); Ecstacy Urine VISTA NEGATIVE (< 500 ng/mL); Methadone Urine VISTA NEGATIVE (< 300 ng/mL); PCP Urine VISTA NEGATIVE (< 25 ng/mL); THC Urine VISTA NEGATIVE (< 50 ng/mL); Vista UDS pH Range 6
[2020-10-29 03:07] LABS: Chlamydia By Nucleic Acid AMP Negative (Negative)
[2020-10-29 11:50] LABS: Gonococcus By Nucleic Acid AMP Negative (Negative)
[2020-11-02 17:01] LABS: HPV Reflexed? NOT INDICATED
[2020-11-03 01:10] LABS: Rapid Plasmin Reagin (RPR) NONREACTIVE (NONREACTIVE)
== END ==
PROVIDERS: PCP Nurse Practitioner Family; Referring Provider Obstetrics & Gynecology; Visit Provider Obstetrics & Gynecology
DX: O09.299 Supervision of pregnancy with other poor reproductive or obstetric history, unspecified trimester (principal); Z86.32 Personal history of gestational diabetes; Z12.4 Encounter for screening for malignant neoplasm of cervix; Z3A.00 Weeks of gestation of pregnancy not specified
CPT/HCPCS: 36415; 80307; 82950; 85025; 86592; 86703; 86762; 86803; 86850; 86900; 86901; 87086; 87088; 87340; 87491; 87591; 88175; G0145

== ENCOUNTER → 2020-11-07 14:29 | Outpatient (CLI) | payer MEDICAID, SELFPAY ==
[2020-10-27 09:42] VITALS: BMI 25.7
--- NOTE | 2020-11-07 14:31 | US_ITS ---
STUDY: FIRST TRIMESTER OBSTETRICAL ULTRASOUND REASON FOR EXAM: Female, 30 years old dating LMP: 09/03/2020. TECHNIQUE: Transvaginal TECHNICAL QUALITY: Adequate. PRIOR ULTRASOUND: None. FINDINGS: There is visualization of a single gestational sac in a normal intrauterine position. The mean sac diameter (MSD) measures 1.71 cm, indicating an estimated gestational age (EGA) of 6 weeks, 4 days. The gestational sac shape is within normal limits. There is a visualized yolk sac. The yolk sac measures 4 mm. The placenta is non-visualized. There is visualization of a live embryo. The crown-rump length (CRL) measures 7 mm, indicating an estimated gestational age (EGA) of 6 weeks, 4 days. There is demonstrated cardiac activity with a heart rate of 129 bpm. The estimated gestation age (EGA) by LMP is 9 weeks, 2 days. The estimated date of delivery (DENNIS) by LMP is 06/10/2021. The estimated gestation age (EGA) by US is 6 weeks, 4 days. The estimated date of delivery (DENNIS) by US is 06/29/2021. The uterus measures 10.3 cm x 7.5 cm x 5.3 cm. There is no demonstrated uterine fibroid. The cervix is closed. The right ovary measures 3.1 cm x 1.6 cm x 1.2 cm. There is no right ovarian cyst. There is no visualized right adnexal mass or complex lesion. The left ovary measures 3.3 cm x 1.7 cm x 1.7 cm. There is no left ovarian cyst. There is no visualized left adnexal mass or complex lesion. There is no fluid in the cul de sac. US/Init OB < 14Wks US IMPRESSION: Single live intrauterine gestation with a mean gestational age of 6 weeks and 4 days. Electronically Signed: Rashard Mckeon MD at 15:18 EST , Service support ,
== END ==
PROVIDERS: PCP Nurse Practitioner Family; Referring Provider Obstetrics & Gynecology; Visit Provider Obstetrics & Gynecology
DX: Z34.80 Encounter for supervision of other normal pregnancy, unspecified trimester (principal)
CPT/HCPCS: 76801

== ENCOUNTER → 2021-04-11 10:11 | Outpatient (CLI) | payer MEDICAID, SELFPAY ==
[2021-02-15 11:21] VITALS: BMI 29.1
[2021-04-11 10:36] LABS: Absolute Lymphocyte Count 1.53 X10^3/uL (0.83-4.51); Absolute Neutrophil Count 6.2 X10^3/uL (2.0-7.7); Basophil# 0.02 X10^3/uL; Basophil% 0.2 % (0-1); Eosinophil# 0.14 X10^3/uL; Eosinophils% 1.7 % (0-5); Hematocrit 30.7 % (37-47); Hemoglobin 10.7 g/dL (12.0-15.0); Lymphocyte # 1.53 X10^3/ul (0.83-4.51); Lymphocyte % 18.3 % (19-41); Mean Corp Hgb Conc 34.9 g/dL (32-36); Mean Corpuscular Hgb 32.4 pg (27.0-32.0); Mean Platelet Vol. 9.7 fl (6.2-12.0); Monocyte# 0.39 X10^3/uL; Monocyte% 4.7 % (0-10); NRBC Flagged by Analyzer 0 % (0-5); Neutrophil # 6.23 X10^3/uL (2.7-7.7); Neutrophil % 74.3 % (47-70); Platelet Count 216 K/mm3 (150-450); RBC Distribution Width SD 44.3 fl (35.1-43.9); White Blood Count 8.4 K/mm3 (4.4-11.0)
[2021-04-11 10:58] LABS: Glucose Challenge Gest 1H 50g 202 mg/dL (70-140)
== END ==
PROVIDERS: Obstetrics & Gynecology; PCP Nurse Practitioner Family; Referring Provider Obstetrics & Gynecology; Visit Provider Obstetrics & Gynecology
DX: Z34.80 Encounter for supervision of other normal pregnancy, unspecified trimester (principal)
CPT/HCPCS: 36415; 82950; 85025

== ENCOUNTER → 2021-06-30 | Outpatient (CLI) | payer MEDICAID, SELFPAY | END | disposition home or self-care (01) | LOC: LABSPEC 12:38 | PROVIDERS: PCP Nurse Practitioner Family; Referring Provider Obstetrics & Gynecology; Visit Provider Obstetrics & Gynecology | DX: Z34.80 Encounter for supervision of other normal pregnancy, unspecified trimester (principal) | CPT/HCPCS: 87081 ==

== ENCOUNTER 2021-07-07 10:45 | Inpatient (IN) | payer MEDICAID, SELFPAY ==
[2021-07-07] VITALS (18 sets, daily range): BP systolic 86–119; BP diastolic 45–65; PULSE 56–96; RESP 16; TEMP 36.3–36.8; O2SAT 94–98; BMI 31.6
[2021-07-07] MEDS: Lactated Ringers 1,000 ML 999 ML IV ×2 (11:15→20:18)
[2021-07-07 11:35] LABS: Bedside Glucose 96 mg/dL (70-110)
[2021-07-07 11:35] LABS: Absolute Lymphocyte Count 1.69 X10^3/uL (0.83-4.51); Absolute Neutrophil Count 11.5 X10^3/uL (2.0-7.7); Basophil# 0.03 X10^3/uL; Basophil% 0.2 % (0-1); Eosinophil# 0.07 X10^3/uL; Eosinophils% 0.5 % (0-5); Hematocrit 35.3 % (37-47); Hemoglobin 12.7 g/dL (12.0-15.0); Lymphocyte # 1.69 X10^3/ul (0.83-4.51); Lymphocyte % 11.8 % (19-41); Mean Corpuscular Hgb 32.6 pg (27.0-32.0); Mean Corpuscular Volume 90.5 fL (81-99); Mean Platelet Vol. 10.7 fl (6.2-12.0); Monocyte# 0.81 X10^3/uL; Monocyte% 5.7 % (0-10); NRBC Flagged by Analyzer 0 % (0-5); Neutrophil # 11.53 X10^3/uL (2.7-7.7); Neutrophil % 80.7 % (47-70); Platelet Count 253 K/mm3 (150-450); RBC Distribution Width CV 12.9 % (11.6-14.6); RBC Distribution Width SD 42.7 fl (35.1-43.9); White Blood Count 14.3 K/mm3 (4.4-11.0)
[2021-07-07] MEDS: Oxytocin 30 units/NS 500 ml 30 UNITS/500 ML IV.SOLN 167 UNITS IV (12:30)
[2021-07-07] MEDS: Ketorolac 30 MG/ML Syringe IV ×2 (13:40→19:03)
--- NOTE | 2021-07-07 13:55 | HP.PCM.OB_ITS ---
HPI - General General Date of Admission: 07/07/21 HPI Narrative MAJOR GONZALES, is a 30 F who presents IAL breech and 7 cm dilated, was laboring at home with a clay mixer chris walsh. Maternal Data Information DENNIS Calculator Estimated Delivery Date Method Current [facility] Medical History Family history of hearing loss at age younger than 7 years H/O gestational diabetes in prior , currently Home Medications folic acid 800 mcg tablet 0.8 mg PO DAILY 12/17/18 [History Last Taken Unknown] ferrous sulfate 325 mg (65 mg iron) tablet 325 mg PO DAILY tab 02/18/19 [History Last Taken Unknown] lancets 28 gauge #120 ea 04/13/21 [Rx Last Taken Unknown] blood sugar diagnostic #150 ea 04/28/21 [Rx Last Taken Unknown] True Metrix Glucose Meter #1 ea NS 05/08/21 [Rx Last Taken Unknown] blood sugar diagnostic #150 ea 05/08/21 [Rx Last Taken Unknown] cholecalciferol (vitamin D3) 1,250 mcg (50,000 unit) capsule 1,250 mcg PO .q 2 weeks cap 05/09/21 [History Last Taken Unknown] naproxen 500 mg PO BID PRN PRN #30 tab 07/09/21 [Rx Last Taken Unknown] oxycodone-acetaminophen [Endocet] 1 tab PO Q4H PRN 7 Days #20 tab 07/09/21 [Rx Last Taken Unknown] Allergy/AdvReac Type Severity Reaction Status Date / Time No Known Allergies Allergy Verified 07/20/21 08:58 Family History Father Psoriatic arthritis Grandmother Diabetes Sister Ovarian cancer Family History no significant family his Surgical History no surgical history Social History number of children: 2 current occupational status: other current occupation: Homemaker Smoking Status: Never smoker alcohol intake: never substance use type: does not use seatbelt use: always do you feel safe at home: Yes additional social history: to Justino - employed at [employer] History 3 Elective abortions 0 Hx Para 3 Spontaneous abortions 0 Hx # Term Pregnancies 3 Ectopic pregnancies 0 Hx # Pregnancies 0 Multiple births 0 # of living children 3 Past Pregnancies Del. Date Name GA/Weeks Outcome Route Bth Weight Gen Labor Lgth Anesthesia Del Locatn Provider FOB 03/14/18 Naida 40 live - full term 6'5.8 Female 7 hrs none Rachael Carranza Ruben Young, supervisor sandblaster 07/29/19 [place] 40 live - full term 7lbs 8oz Female 5 h ours none [facility] 07/07/21 Kristel 40 live - full term 6lbs 11oz Female spinal [facility] Dr. Main Delivery Date: 03/14/18 No notes to display Delivery Date: 07/29/19 Clara Naik Delivery Date: 07/07/21 LTCS breech 8cm, GDMA1 Miranda Paredes Visit Details Expected Delivery Route/Plan cocare with Chris Walsh plan home Labor Preferences- CB/BF classes: no labor support person: Justino labor intervention preferences: [] pain management options preferred: [] cut cord/dad catch: [] : [] PP control planned: [] discussed possible routes of delivery and associated risks: [] special requests: [] Plans covid status: non immune, counseled regarding risk of covid in vs vaccination and declined vaccination flu vaccine: declined tdap vaccine: declines rhogam: na LARC form signed: yes movement and labor precautions reviewed. Problem list reviewed and updated with the most current plan of care details and appropriate orders placed. Relevant counseling for the gestational age provided. Continue routine care and follow up unless otherwise noted in visit notes/problem list details OB Flowsheet Initial Weight: 130 lb Date -?-?-?-?-?-?-?-?-?-?-?-?- EGA Weight BP Urine Prot -?-?-?-?-?-?-?-?-?-?-?-?- Glucose FHR FuHt Pres Dilation -?-?-?-?-?-?-?-?-?-?-?-?- Effaced St Visit Note 10/27/20 -?-?-?-?-?-?-?-?-?-?-?-?- 4w 0d 132 lb (+2 lb) 108/80 -?-?-?-?-?-?-?-?-?-?-?-?- -?-?-?-?-?-?-?-?-?-?-?-?- SM- CRL cons wit h LMP SM- CRL NOT cons with LMP, y olk sac seen 7 mm GS 11/25/20 -?-?-?-?-?-?-?-?-?-?-?-?- 8w 1d 134 lb (+4 lb) 122/80 Negative -?-?-?-?-?-?-?-?-?-?-?-?- Negative 160 -?-?-?-?-?-?-?-?-?-?-?-?- SM- no vb lof cr amping SM- no vb lof cramping CRL 17 mm on abdominal scan 02/15/21 -?-?-?-?-?-?-?-?-?-?-?-?- 19w 6d 149 lb 4 oz (+19 lb 4 oz) 130/72 Negative -?-?-?-?-?-?-?-?-?-?-?-?- Negative 150 -?-?-?-?-?-?-?-?-?-?-?-?- GP - no ctx, LOF , VB, DFM. Seeing supervisor sandblaster for next visit. GCT given today to be done at 28 weeks. 04/11/21 -?-?-?-?-?-?-?-?-?-?-?-?- 27w 5d 155 lb (+25 lb) 100/70 -?-?-?-?-?-?-?-?-?-?-?-?- 140 29 -?-?-?-?-?-?-?-?-?-?-?-?- SM- no vb lof go od fm n oregular ctx discussed gct findings start diabetic diet and testing, will discuss with supervisor sandblaster about diagnosis and delivery care plan 04/27/21 -?-?-?-?-?-?-?-?-?-?-?-?- 30w 0d 156 lb 4 oz (+26 lb 4 oz) 124/60 Negative -?-?-?-?-?-?-?-?-?-?-?-?- Negative 161 30 -?-?-?-?-?-?-?-?-?-?-?-?- MH-No Vb, LOF. G ood FM. BS as WNL. Has not seen Dr Higgins or dietitian. Appt arranged. Declines tdap. Larc. 05/09/21 -?-?-?-?-?-?-?-?-?-?-?-?- 31w 5d 161 lb (+31 lb) 116/64 Negative -?-?-?-?-?-?-?-?-?-?-?-?- Negative 151 32 -?-?-?-?-?-?-?-?-?-?-?-?- MH-No Vb, LOF. Good FM. BS well controlled, seeing Dr Higgins. Patient declines growth US at 36, plans 1 more visit with and then home delivery/care with Chris Walsh 06/05/21 -?-?-?-?-?-?-?-?-?-?-?-?- 35w 4d 167 lb 8 oz (+37 lb 8 oz) 118/78 Negative -?-?-?-?-?-?-?-?-?-?-?-?- Negative 140 35 -?-?-?-?-?-?-?-?-?-?-?-?- SM- no vb lof go od fm no reuglar ctx. BS reviewed and well controlled. discussed with patient i recommend a 36 week growth scan, patient declines. I discussed increased risks of shoulder dystocia, labor protraction, neaonatal nerve injury or , and that the size of the baby may influence the decision to deliver at home, patient states she feels comfortable with the risk and declines testing, but would be open to it at 40 weeks. I discussed that diabetic patients should be delivered by 40 weeks, patient states she will think about this. I will review care plan with Chris Walsh her supervisor sandblaster. 06/30/21 -?-?-?-?-?-?-?-?-?-?-?-?- 39w 1d 167 lb 4 oz (+37 lb 4 oz) 110/78 Negative -?-?-?-?-?-?-?-?-?-?-?-?- Negative 135 39 Cephalic 0 .5 -?-?-?-?-?-?-?-?-?-?-?-?- 40 -3 GP - no LO F, VB, DFM, ctx. Discussed IOL by 41w. Encouraged to return for visit at 40w. GBS done today. 07/07/21 -?-?-?-?-?-?-?-?-?-?-?-?- 40w 3d 164 lb 12.8 oz (+34 lb 12.8 oz) 119/65 92/45 92/45 93/50 90/55 97/60 98/61 95/63 96/61 95/58 96/57 93/57 94/50 89/48 86/52 -?-?-?-?-?-?-?-?-?-?-?-?- -?-?-?-?-?-?-?-?-?-?-?-?- NST FHR Rate Baby A Baseline: 130 Variability:: Moderate Accelerations:: 15 x 15 Decelerations:: None NST Reactive:: Yes FHR Category:: Category I Uterine Activity:: irregular ROS Constitutional Constitutional: Reports systems reviewed and no addt'l complaints, except as documented Eyes Eyes: Denies change in vision ENT HEENT: Reports systems reviewed and no addt'l complaints, except as documented; Denies headache(s) Cardiovascular Cardiovascular: Reports systems reviewed and no addt'l complaints, except as documented; Denies chest pain or dyspnea Respiratory/Chest Respiratory/Chest: Reports systems reviewed and no addt'l complaints, except as documented Gastrointestinal Gastrointestinal: Reports systems reviewed and no addt'l complaints, except as documented; Denies abdominal pain Genitourinary Genitourinary: Reports systems reviewed and no addt'l complaints, except as documented, contractions Details: present (irregular) and movement Details: present; Denies dysuria or genital lesions Musculoskeletal Musculoskeletal: Reports systems reviewed and no addt'l complaints, except as documented Neurologic Neurologic: Reports systems reviewed and no addt'l complaints, except as documented Endocrine Endocrinology: Reports systems reviewed and no addt'l complaints, except as documented Vital Signs Vital Signs Vital Signs: 07/07/21 12:28 07/07/21 12:30 07/07/21 12:41 Temperature 97.5 F L 98.2 F 97.5 F L Temperature Source Temporal Temporal Temporal Pulse Rate 83 83 66 Respiratory Rate 16 16 16 Respiratory Pattern Normal Blood Pressure 92/45 L 92/45 L 93/50 L Blood Pressure Mean 60 60 64 Blood Pressure Source Monitor Monitor Monitor Blood Pressure Position Supine Semi-Fowlers Semi-Fowlers Blood Pressure Location Left Arm Left Arm Left Arm Baseline BP 119/55 119/55 119/55 Pulse Ox 98 97 95 Oxygen Delivery Method Room Air Room Air Room Air 07/07/21 12:56 07/07/21 13:11 07/07/21 13:30 Temperature 97.3 F L 98.1 F Temperature Source Temporal Temporal Pulse Rate 63 57 L 62 Respiratory Rate 16 16 16 Respiratory Pattern Blood Pressure 90/55 L 97/60 98/61 Blood Pressure Mean 66 72 73 Blood Pressure Source Monitor Monitor Monitor Blood Pressure Position Semi-Fowlers Semi-Fowlers Semi-Fowlers Blood Pressure Location Left Arm Left Arm Left Arm Baseline BP 119/55 119/55 119/55 Pulse Ox 95 95 95 Oxygen Delivery Method Room Air Room Air Room Air 07/07/21 13:45 Temperature 98.0 F Temperature Source Temporal Pulse Rate 58 L Respiratory Rate 16 Respiratory Pattern Blood Pressure 95/63 Blood Pressure Mean 73 Blood Pressure Source Monitor Blood Pressure Position Semi-Fowlers Blood Pressure Location Right Arm Baseline BP 119/55 Pulse Ox 94 Oxygen Delivery Method Room Air Weight Weight: 164 lb 12.8 oz Body Mass Index (BMI) 31.6 Physical Exam Const alert, oriented x3, no apparent distress and healthy appearing HEENT normocephalic and moist oral mucous membranes Head and Scalp: atraumatic Neck full ROM, no lymphadenopathy, supple and thyroid normal General: trachea midline Lymph Lymphatic: no lymphadenopathy noted Chest inspection of chest normal Resp normal respiratory effort Cardio regular rate GI normal to inspection, nondistended, normoactive bowel sounds, soft to palpation and non-tender Inspection: gravid external exam normal Manual OB Exam: estimated gestational size appropriate, presentation breech, dilated, effaced and station Extremity normal to inspection General Extremity: Negative for edema Skin no rashes or lesions noted Neuro no focal motor deficits and deep tendon reflexes 2+ bilaterally Motor Exam: strength 5/5 throughout and clonus absent Psych mental status grossly normal Labs Labs Labs: Blood Type B POSITIVE Antibody Screen NEGATIVE Hct 30.6 % (37-47) L Hgb 10.6 g/dL (12.0-15.0) L Obstetrics US Rubella IgG Antibody Reactive (Nonreactive) Hep Bs Antigen Non-Reactive (Nonreactive) Neisseria gonorrhoeae DNA (ZACK) Negative (Negative) HIV 1&2 Antibody Non-Reactive (Nonreactive) C.trachomatis DNA (PCR) Negative (Negative) Glucose 1 Hr 50 gm 202 mg/dL (70-140) H Rhogam given: No Assessment & Plan (1) Active labor at term: (2) Breech presentation: PLAN: proceed with immedaite LTCS
--- NOTE | 2021-07-07 13:56 | OP.PCM_ITS ---
Assessment & Plan (1) delivery delivered: COMMENT: SM cs breech girl 40 (2) : QUALIFIERS: Weeks of gestation: 39 weeks Qualified Code(s): Z3A.39 - 39 weeks gestation of COMMENT: declines genetic, carrier and AFP, anatomy nl but AC noted as 94%. cocare with Inna Walsh, patient requests home . GBS NEG (3) Supervision of other normal : COMMENT: PRR DENNIS: 06/29/21 PC: [place] Pascal Spouse: Justino (4) Gestational diabetes mellitus (GDM): QUALIFIERS: Gestational diabetes mellitus control: diet-controlled Trimester: third trimester Qualified Code(s): O24.410 - Gestational diabetes mellitus in , diet controlled COMMENT: home BS monitoring with diet control. patient declined 36 week growth scan. discussed risks of home with diabetes and patient is still wanting to proceed with homebirth. will discuss with metal grinder Inna Walsh. Maternal Data Information DENNIS Calculator Estimated Delivery Date Method Current WG Current Estimate 07/06/21 Ultrasound #2 40w 1d Other Estimates 06/10/21 LMP (Certain) 43w 6d 06/29/21 Ultrasound #1 41w 1d Final DENNIS Source: LMP Details Operative Information Date of Procedure: 07/07/21 Pre-Operative Diagnosis: breech 8 cm in labor Post-Operative Diagnosis: same Indications for : Breech Classification: LASHA Procedure Type: low transverse Type of Anesthesia: Spinal Special Medications: none Antibiotic Given: Ancef 2 grams IV x1 Drain: Euceda to straight drain Estimated Blood Loss: 600 Fluids Replaced: crystalloid Findings Description of Procedure: Spinal anesthesia was placed without difficulty. Euceda catheter was placed. The patient was placed in the dorsal supine position with leftward tilt. Patient was prepped and draped in the normal sterile fashion. Pfannenstiel skin incision was made with the scalpel and carried through to the underlying layer of fascia with the scalpel. Fascia was nicked in the midline and the incision extended laterally. The rectus bellies were dissected off superiorly and inferiorly with out complication both sharply and bluntly. The peritoneum was entered digitally. The incision was stretched and a low transverse uterine incision was made with the scalpel. The buttox was delivered atraumatically and the right and left legs were swept anteriorly and delivered, followed by the body and the arms which were swept anteriorly and delivered. Gentle traction was placed on the mentum to flex the head which was delivered without complication. The cord was clamped and cut and the was handed off to awaiting nurse. The placenta was delivered spontaneously immediately following and was noted to be intact and have a three-vessel cord. The uterus was exteriorized cleared of all clots and debris, and the incision was closed in a double layer closure using #1 Monocryl. The ovaries and fallopian tubes were noted to be within normal limits. The uterus was returned to the maternal abdomen and gutters were cleared of all clots and debris. The peritoneum was closed with 3-0 Monocryl in a running fashion. Gloves were changed prior to fascial closure. Fascia was closed with 0 PDS in a running fashion. Subcutaneous tissue was copiously irrigated and the skin was closed with 3-0 Monocryl in a subcuticular fashion. Mepilex dressing was applied without complication. Patient was taken to recovery in stable condition. It was discussed with the patient that based on the clinical information obtained during this encounter, combined with her history, at this time I would recommend vaginal or cesareans for future deliveries if further pregnancies are desired. Amniotic Membrane Rupture Type: Artificial Amniotic Fluid Description: Clear Placenta Disposition: [facility] Cord Vessel Description: 3 Vessels Cord Entanglement: None Delayed Cord Clamping: Yes Complications Risks of Surgery Discussed w/Patient: Bleeding, Infection and Injury to surrounding structure(s) including bowel and bladder Vaginal Delivery Complication Complications: None Admit VTE Documentation VTE Present on Admission: No VTE Mechan Device Prophylaxis: SCD's Procedures Urinary/Genital [id number]: [id number] delivery+PP Care([facility])
[2021-07-07 14:11] LABS: Bedside Glucose 90 mg/dL (70-110)
[2021-07-07] MEDS: Acetaminophen 500 MG Tablet 1000 MG PO ×2 (14:42→20:20)
[2021-07-07] MEDS: Lactated Ringers 1,000 ML 100 ML IV (15:38)
[2021-07-08] VITALS (7 sets, daily range): BP systolic 88–112; BP diastolic 47–65; PULSE 63–78; RESP 16; TEMP 36.1–36.9; O2SAT 95–96
[2021-07-08] MEDS: Lactated Ringers 1,000 ML 999 ML IV (00:23)
[2021-07-08 00:24] LABS: Hematocrit 30.6 % (37-47); Hemoglobin 10.6 g/dL (12.0-15.0); Mean Corp Hgb Conc 34.6 g/dL (32-36); Mean Corpuscular Hgb 32.2 pg (27.0-32.0); Mean Platelet Vol. 10.6 fl (6.2-12.0); Platelet Count 202 K/mm3 (150-450); RBC Distribution Width CV 13.1 % (11.6-14.6); RBC Distribution Width SD 44.9 fl (35.1-43.9); Red Blood Count 3.29 M/mm3 (4.2-5.4); White Blood Count 13.7 K/mm3 (4.4-11.0)
[2021-07-08] MEDS: Ketorolac 30 MG/ML Syringe IV ×2 (01:59→07:56)
[2021-07-08] MEDS: Lactated Ringers 1,000 ML 100 ML IV (01:59)
[2021-07-08] MEDS: Acetaminophen 500 MG Tablet 1000 MG PO ×4 (01:59→20:13)
[2021-07-08] MEDS: 0.9% Saline Lock 10 ML Syringe IV (07:56)
[2021-07-08 08:16] LABS: Bedside Glucose 79 mg/dL (70-110)
[2021-07-08] MEDS: Senna/Docusate Sodium 1 Tablet PO (10:24)
[2021-07-08] MEDS: Naproxen 500 MG Tablet PO ×2 (16:01→23:39)
[2021-07-09 01:43] VITALS: BP 105/60; PULSE 60; RESP 15; TEMP 36.3; O2SAT 95
[2021-07-09] MEDS: Acetaminophen 500 MG Tablet 1000 MG PO ×2 (02:26→08:15)
--- NOTE | 2021-07-09 07:01 | PCM.PN.OB ---
Subjective Subjective late entry- seen 8:40 am 07/08- lochia appropriate no CP SOB N V ambulating tolerating po Objective Data Objective Data Vital Signs: Vital Signs Temp Pulse Resp BP Pulse Ox 97.4 F L 60 15 105/60 95 07/09/21 01:43 07/09/21 01:43 07/09/21 01:43 07/09/21 01:43 07/09/21 01:43 Oxygen Delivery Method Room Air Weight: 164 lb 12.8 oz Body Mass Index (BMI) 31.6 Intake & Output: Intake and Output for Last 24 Hours 07/07/21 07/08/21 07/09/21 23:59 23:59 23:59 Intake Total 1966.3 / 1966.3 2080.00 / 2080.00 Output Total 1350 / 1350 2500 / 2500 Balance 616.3 / 616.3 -420.00 / -420.00 Lab / Micro Data Result Diagrams: 07/08/21 00:22 Labs: Laboratory Results - last 24 hr 07/08/21 07:47: POC Glucose 79 ROS Constitutional Constitutional: Reports systems reviewed and no addt'l complaints, except as documented Cardiovascular Cardiovascular: Reports systems reviewed and no addt'l complaints, except as documented Respiratory/Chest Respiratory/Chest: Reports systems reviewed and no addt'l complaints, except as documented Gastrointestinal Gastrointestinal: Reports systems reviewed and no addt'l complaints, except as documented Physical Exam Const alert, oriented x3 and no apparent distress HEENT Head and Scalp: atraumatic Resp normal respiratory effort GI soft to palpation and non-tender Inspection: incision intact, healing well and drainage (none) Bimanual Exam - Vag & Uterus: uterus non-tender Uterus Palpation: uterus fundus firm (below Umbilicus) Assessment & Plan (1) delivery delivered: COMMENT: SM cs breech girl 40 (2) : QUALIFIERS: Weeks of gestation: 39 weeks Qualified Code(s): Z3A.39 - 39 weeks gestation of COMMENT: declines genetic, carrier and AFP, anatomy nl but AC noted as 94%. cocare with Inna Walsh, patient requests home . GBS NEG (3) Supervision of other normal : COMMENT: PRR DENNIS: 06/29/21 PC: [place] Pascal Spouse: Justino (4) Gestational diabetes mellitus (GDM): QUALIFIERS: Gestational diabetes mellitus control: diet-controlled Trimester: third trimester Qualified Code(s): O24.410 - Gestational diabetes mellitus in , diet controlled COMMENT: home BS monitoring with diet control. patient declined 36 week growth scan. discussed risks of home with diabetes and patient is still wanting to proceed with homebirth. will discuss with attendant self service store Inna Walsh. PLAN: s/p LTCS PPD # 1 1. routine post care 2. breast feeding- support given 3. rh positive 4. rubella immune
--- NOTE | 2021-07-09 07:03 | PCM.PN.OB ---
Subjective Subjective Patient doing well without complaints. Tolerating PO. Ambulating and voiding without difficulty. feeding well. Denies chest pain, shortness of breath, calf pain/swelling, fevers, chills, lightheadedness. Objective Data Objective Data Vital Signs: Vital Signs Temp Pulse Resp BP Pulse Ox 97.4 F L 60 15 105/60 95 07/09/21 01:43 07/09/21 01:43 07/09/21 01:43 07/09/21 01:43 07/09/21 01:43 Oxygen Delivery Method Room Air Weight: 164 lb 12.8 oz Body Mass Index (BMI) 31.6 Intake & Output: Intake and Output for Last 24 Hours 07/07/21 07/08/21 07/09/21 23:59 23:59 23:59 Intake Total 1966.3 / 1966.3 2080.00 / 2080.00 Output Total 1350 / 1350 2500 / 2500 Balance 616.3 / 616.3 -420.00 / -420.00 Lab / Micro Data Result Diagrams: 07/08/21 00:22 Labs: Laboratory Results - last 24 hr 07/08/21 07:47: POC Glucose 79 ROS Constitutional Constitutional: Reports systems reviewed and no addt'l complaints, except as documented Cardiovascular Cardiovascular: Reports systems reviewed and no addt'l complaints, except as documented Respiratory/Chest Respiratory/Chest: Reports systems reviewed and no addt'l complaints, except as documented Gastrointestinal Gastrointestinal: Reports systems reviewed and no addt'l complaints, except as documented Physical Exam Const alert, oriented x3 and no apparent distress HEENT Head and Scalp: atraumatic Resp normal respiratory effort GI soft to palpation and non-tender Inspection: incision intact, healing well and drainage (none) Bimanual Exam - Vag & Uterus: uterus non-tender Uterus Palpation: uterus fundus firm (below Umbilicus) Assessment & Plan (1) delivery delivered: COMMENT: SM cs breech girl 40 PLAN: s/p LTCS PPD # 2 1. routine post care 2. breast feeding- support given 3. rh positive 4. rubella immune
--- NOTE | 2021-07-09 07:04 | DCINST_ITS ---
Discharge Instructions Diet Discharge Diet: No restrictions Activity Discharge Activity: May Not Drive (for 2 weeks or while taking narcotic pain medications.), May Shower and May Take a Tub Bath (in 7 days) May shower in (days): 0 May resume sexual activity in: 4-6 weeks Weight Bearing Status: Full weight bearing Lifting Restrictions: 20 pounds Dressing / Incision Call your doctor if your incision/area has: Continuous Slow Oozing, Sudden Increased Bleeding, Increased Pain/ Swelling, Increased Redness and Foul Smelling Discharge Call your doctor if you observe: Fever of 101 or Higher and Using more than 1 pad per hour (for 2 hours) Suture Line Care: Avoid Pulling/Pushing and Avoid Pinching/Bending Cleanse incision/area with: Soap & Water and Keep Dressing Clean & Dry Follow Up Care Please Follow Up With: Kristel Main MD When: Call [phone] to make an appointment for an incision check in 1-2 weeks. Test Results: Test results from this visit will be discussed in further detail at your follow-up appointment, if applicable. Discharge Plan Admission Admit Date/Time: 07/07/21 10:45 Primary Reason for Your Visit: section Attending Provider: Kristel Main Primary Care Provider: Roman Mott [employer]SULT[employer] Discharge Orders/Prescriptions Prescriptions: New oxycodone-acetaminophen [Endocet] 5-325 mg tablet 1 tab PO Q4H PRN (Reason: pain) 7 Days Qty: 20 RF: 0 naproxen [naproxen] 500 MG tablet 500 mg PO BID PRN PRN (Reason: Pain) Qty: 30 RF: 1 Continued folic acid 800 mcg tablet 0.8 mg PO DAILY RF: 0 ferrous sulfate 325 mg (65 mg iron) tablet 325 mg PO DAILY RF: 0 (DME) OneTouch Ultra Test Strip See Rx Instructions .ROUTE .MEDSUPPLY Qty: 150 RF: 3 cholecalciferol (vitamin D3) 1,250 mcg (50,000 unit) capsule 1,250 mcg PO .q 2 weeks RF: 0 (DME) lancets [Advanced Travel Lancets] 28 gauge misc See Rx Instructions .ROUTE .MEDSUPPLY Qty: 120 RF: 3 (DME) blood-glucose meter [True Metrix Glucose Meter] Misc See Rx Instructions .ROUTE .MEDSUPPLY Qty: 1 RF: 0 (DME) True Metrix Glucose Test Strip Strip See Rx Instructions .ROUTE .MEDSUPPLY Qty: 150 RF: 3 Referrals / Follow Up: Roman Mott NP, [employer]SULT[facility] [Primary Care Provider] - Disposition Disposition (needs filled in before D/C Order can be placed): Home, Self Care
[2021-07-09 08:10] VITALS: BP 120/65; PULSE 63; RESP 16; TEMP 36.4; O2SAT 96
[2021-07-09] MEDS: Naproxen 500 MG Tablet PO (08:15)
== END 2021-07-09 11:15 | disposition home or self-care (01) | DRG 540 ==
PROVIDERS: Admitting Provider Obstetrics & Gynecology; PCP Nurse Practitioner Family; Visit Provider Obstetrics & Gynecology
DX: O32.1XX0 Maternal care for breech presentation, not applicable or unspecified (principal); O24.420 Gestational diabetes mellitus in childbirth, diet controlled; Z3A.40 40 weeks gestation of pregnancy; Z37.0 Single live birth
CPT/HCPCS: 59025; 59050; 82962; 85025; 85027; 86850; 86900; 86901; 99218; 99251; J7120; A4216; G0378; G0463

== ENCOUNTER → 2022-09-25 | Outpatient (CLI) | payer MEDICAID, SELFPAY ==
[2022-09-25 12:50] LABS: Absolute Neutrophil Count 7.8 X10^3/uL (2.0-7.7); Basophil# 0.03 X10^3/uL; Basophil% 0.3 % (0-1); Eosinophil# 0.15 X10^3/uL; Eosinophils% 1.4 % (0-5); Hematocrit 35.8 % (37-47); Hemoglobin 12.1 g/dL (12.0-15.0); Lymphocyte % 20.4 % (19-41); Mean Corp Hgb Conc 33.8 g/dL (32-36); Mean Corpuscular Hgb 29.5 pg (27.0-32.0); Mean Corpuscular Volume 87.3 fL (81-99); Mean Platelet Vol. 9.4 fl (6.2-12.0); Monocyte# 0.61 X10^3/uL; Monocyte% 5.6 % (0-10); NRBC Flagged by Analyzer 0 % (0-5); Neutrophil # 7.77 X10^3/uL (2.7-7.7); Neutrophil % 71.9 % (47-70); Platelet Count 268 K/mm3 (150-450); RBC Distribution Width CV 12.1 % (11.6-14.6); RBC Distribution Width SD 38.5 fl (35.1-43.9); White Blood Count 10.8 K/mm3 (4.4-11.0)
[2022-09-28 06:07] LABS: Chlamydia By Nucleic Acid AMP Negative (Negative)
[2022-09-28 16:17] LABS: Gonococcus By Nucleic Acid AMP Negative (Negative)
== END | disposition home or self-care (01) ==
PROVIDERS: PCP Nurse Practitioner Family; Referring Provider Obstetrics & Gynecology; Visit Provider Obstetrics & Gynecology
DX: O20.0 Threatened abortion (principal)
CPT/HCPCS: 36415; 84702; 85025; 86850; 86900; 86901; 87491; 87591

== ENCOUNTER → 2022-09-27 | Outpatient (CLI) | payer MEDICAID, SELFPAY | END | disposition home or self-care (01) | LOC: LAB 16:11 | PROVIDERS: PCP Nurse Practitioner Family; Referring Provider Obstetrics & Gynecology; Visit Provider Obstetrics & Gynecology | DX: O20.0 Threatened abortion (principal) | CPT/HCPCS: 36415; 84702 ==

== ENCOUNTER → 2022-10-10 | Outpatient (CLI) | payer MEDICAID, SELFPAY ==
[2022-10-10 12:42] LABS: hCG Titer Quant., Serum 2753 mIU/mL (1-3)
== END | disposition home or self-care (01) ==
LOC: PAVLAB 11:05
PROVIDERS: PCP Nurse Practitioner Family; Referring Provider Obstetrics & Gynecology; Visit Provider Obstetrics & Gynecology
DX: O03.4 Incomplete spontaneous abortion without complication (principal)
CPT/HCPCS: 36415; 84702

== ENCOUNTER → 2022-10-17 | Outpatient (CLI) | payer MEDICAID, SELFPAY ==
[2022-10-17 09:33] LABS: hCG Titer Quant., Serum 348 mIU/mL (1-3)
== END | disposition home or self-care (01) ==
PROVIDERS: PCP Nurse Practitioner Family; Referring Provider Obstetrics & Gynecology; Visit Provider Obstetrics & Gynecology
DX: O03.4 Incomplete spontaneous abortion without complication (principal)
CPT/HCPCS: 36415; 84702

== ENCOUNTER → 2022-10-24 | Outpatient (CLI) | payer MEDICAID, SELFPAY ==
[2022-10-24 09:41] LABS: hCG Titer Quant., Serum 97 mIU/mL (1-3)
== END | disposition home or self-care (01) ==
PROVIDERS: PCP Nurse Practitioner Family; Referring Provider Obstetrics & Gynecology; Visit Provider Obstetrics & Gynecology
DX: O03.4 Incomplete spontaneous abortion without complication (principal)
CPT/HCPCS: 36415; 84702

== ENCOUNTER → 2022-10-31 | Outpatient (CLI) | payer MEDICAID, SELFPAY ==
[2022-10-31 09:45] LABS: hCG Titer Quant., Serum 35 mIU/mL (1-3)
== END | disposition home or self-care (01) ==
LOC: PAVLAB 08:49
PROVIDERS: PCP Nurse Practitioner Family; Referring Provider Obstetrics & Gynecology; Visit Provider Obstetrics & Gynecology
DX: O03.4 Incomplete spontaneous abortion without complication (principal)
CPT/HCPCS: 36415; 84702

== ENCOUNTER → 2022-11-07 | Outpatient (CLI) | payer MEDICAID, SELFPAY ==
[2022-11-07 09:41] LABS: hCG Titer Quant., Serum 11 mIU/mL (1-3)
== END | disposition home or self-care (01) ==
PROVIDERS: PCP Nurse Practitioner Family; Referring Provider Obstetrics & Gynecology; Visit Provider Obstetrics & Gynecology
DX: O03.4 Incomplete spontaneous abortion without complication (principal)
CPT/HCPCS: 36415; 84702

== ENCOUNTER → 2022-11-14 | Outpatient (CLI) | payer MEDICAID, SELFPAY ==
[2022-11-14 09:48] LABS: hCG Titer Quant., Serum 5 mIU/mL (1-3)
== END | disposition home or self-care (01) ==
LOC: PAVLAB 08:43
PROVIDERS: PCP Nurse Practitioner Family; Referring Provider Obstetrics & Gynecology; Visit Provider Obstetrics & Gynecology
DX: O03.4 Incomplete spontaneous abortion without complication (principal)
CPT/HCPCS: 36415; 84702

== ENCOUNTER → 2024-01-02 | Outpatient (CLI) | payer MEDICAID, SELFPAY ==
[2024-01-02 14:37] LABS: Absolute Lymphocyte Count 2.61 X10^3/uL (0.83-4.51); Absolute Neutrophil Count 7.3 X10^3/uL (2.0-7.7); Basophil# 0.03 X10^3/uL; Basophil% 0.3 % (0-1); Eosinophil# 0.17 X10^3/uL; Eosinophils% 1.6 % (0-5); Hematocrit 32.6 % (37-47); Hemoglobin 11.1 g/dL (12.0-15.0); Lymphocyte # 2.61 X10^3/ul (0.83-4.51); Lymphocyte % 24.1 % (19-41); Mean Corpuscular Hgb 29.8 pg (27.0-32.0); Mean Corpuscular Volume 87.6 fL (81-99); Monocyte# 0.71 X10^3/uL; Monocyte% 6.6 % (0-10); NRBC Flagged by Analyzer 0 % (0-5); Neutrophil # 7.26 X10^3/uL (2.7-7.7); Platelet Count 225 K/mm3 (150-450); RBC Distribution Width SD 38.6 fl (35.1-43.9); Red Blood Count 3.72 M/mm3 (4.2-5.4); White Blood Count 10.8 K/mm3 (4.4-11.0)
[2024-01-02 15:06] LABS: Hemoglobin A1c 4.9 % (3.8-5.6)
[2024-01-02 17:09] LABS: HIV - WCH Non-Reactive (Nonreactive); Hepatitis B Surface Antigen Non-Reactive (Nonreactive); Hepatitis C Antibody Non-Reactive (Nonreactive); Rubella IgG Reactive (Nonreactive); Syphilis Antibodies Non-reactive
[2024-01-06 01:06] LABS: Chlamydia By Nucleic Acid AMP Negative (Negative); Gonococcus By Nucleic Acid AMP Negative (Negative)
[2024-01-08 08:11] LABS: HPV APTIMA, High Risk Negative (Negative)
== END | disposition home or self-care (01) ==
PROVIDERS: PCP Nurse Practitioner Family; Referring Provider Advanced Practice Midwife; Visit Provider Advanced Practice Midwife
DX: O09.90 Supervision of high risk pregnancy, unspecified, unspecified trimester (principal); Z86.32 Personal history of gestational diabetes; Z3A.00 Weeks of gestation of pregnancy not specified; Z12.4 Encounter for screening for malignant neoplasm of cervix
CPT/HCPCS: 36415; 83036; 85025; 86703; 86762; 86780; 86803; 86850; 86900; 86901; 87086; 87088; 87340; 87491; 87591; 87624; 88175; G0145

== ENCOUNTER → 2024-05-27 | Outpatient (CLI) | payer MEDICAID, SELFPAY ==
[2024-05-27 15:50] LABS: Absolute Lymphocyte Count 1.91 X10^3/uL (0.83-4.51); Basophil# 0.03 X10^3/uL; Basophil% 0.3 % (0-1); Eosinophil# 0.16 X10^3/uL; Eosinophils% 1.8 % (0-5); Hematocrit 29.6 % (37-47); Hemoglobin 10.1 g/dL (12.0-15.0); Lymphocyte # 1.91 X10^3/ul (0.83-4.51); Lymphocyte % 21.8 % (19-41); Mean Corp Hgb Conc 34.1 g/dL (32-36); Mean Corpuscular Hgb 31.4 pg (27.0-32.0); Mean Corpuscular Volume 91.9 fL (81-99); Mean Platelet Vol. 9.2 fl (6.2-12.0); Monocyte# 0.48 X10^3/uL; Monocyte% 5.5 % (0-10); NRBC Flagged by Analyzer 0 % (0-5); Neutrophil # 6.01 X10^3/uL (2.7-7.7); Neutrophil % 68.8 % (47-70); Platelet Count 284 K/mm3 (150-450); RBC Distribution Width CV 13.5 % (11.6-14.6); RBC Distribution Width SD 45.1 fl (35.1-43.9); Red Blood Count 3.22 M/mm3 (4.2-5.4); White Blood Count 8.8 K/mm3 (4.4-11.0)
[2024-05-27 16:10] LABS: Glucose Challenge Gest 1H 50g 175 mg/dL (70-140)
[2024-05-27 16:44] LABS: HIV - WCH Non-Reactive (Nonreactive); Syphilis Antibodies Non-reactive
== END | disposition home or self-care (01) ==
LOC: LAB 15:32
PROVIDERS: PCP Nurse Practitioner Family; Referring Provider Advanced Practice Midwife; Visit Provider Advanced Practice Midwife
DX: Z34.90 Encounter for supervision of normal pregnancy, unspecified, unspecified trimester (principal); Z3A.24 24 weeks gestation of pregnancy
CPT/HCPCS: 36415; 82950; 85025; 86703; 86780

== ENCOUNTER → 2024-06-05 | Outpatient (CLI) | payer MEDICAID, SELFPAY ==
[2024-06-05 10:45] LABS: Bedside Glucose 80 mg/dL (74-106)
[2024-06-05 11:49] LABS: Glucose GTT-Gestation. Fasting 84 mg/dL (<105)
[2024-06-05 12:10] LABS: Glucose GTT-Gestational 1 Hr 204 mg/dL (<190)
[2024-06-05 12:50] LABS: Glucose GTT-Gestational 2 Hr 189 mg/dL (<165)
[2024-06-05 14:35] LABS: Glucose GTT-Gestational 3 Hr 152 L (<145)
== END | disposition home or self-care (01) ==
LOC: LAB 09:58
PROVIDERS: PCP Nurse Practitioner Family; Referring Provider Obstetrics & Gynecology; Visit Provider Obstetrics & Gynecology
DX: O99.810 Abnormal glucose complicating pregnancy (principal); Z3A.00 Weeks of gestation of pregnancy not specified
CPT/HCPCS: 36415; 82951; 82952; 82962

== ENCOUNTER 2024-07-02 11:00 | Outpatient (CLI) | payer MEDICAID, SELFPAY ==
--- NOTE | 2024-07-02 11:23 | US_ITS ---
EXAM: US BIOPHYSICAL PROFILE WITHOUT NON-STRESS TESTING CLINICAL INDICATION: nonreactive NST TECHNIQUE: Real-time ultrasound of the maternal pelvis for biophysical profile evaluation with image documentation. COMPARISON: None this . FINDINGS: PRESENTATION: Breech. LOWER UTERINE SEGMENT: Not optimally seen. PLACENTA: Anterior, grade 0. No evidence of acute complication. HEART RATE: 145 bpm. RANJEET: 15.3, largest fluid pocket 5.8 cm. BREATHING MOVEMENTS: Present. Score 2/2. GROSS BODY MOVEMENTS: Present. Score 2/2. TONE: Present. Score 2/2. QUALITATIVE AMNIOTIC FLUID VOLUME: Within normal limits. Score 2/2. US/Biophysical Prof W/O Non Stres IMPRESSION: Normal biophysical profile ultrasound. Score 8/8. Breech presentation. Electronically Signed: Saloni Oro MD at 17:07 EDT ,
--- NOTE | 2024-07-07 07:07 | OB.TRI.PN ---
Progress Notes Date of Service: 07/02/24 Progress Note: Patient presents for triage evaluation secondary to non reactive nst, for extended monitoring FHT: 145 Moderate variability reactive no decelerations category I tracing [place]: no regualr Contractions Assessment and plan: non reactive nst in office, now reactive and reassuring Reactive NST, reassuring maternal and status patient discharged to home to follow-up as scheduled. See problem list details for additional plan information. Charges/Coding Procedures Urinary/Genital [id number]: 52729-25 non-stress test Interp Assessment & Plan (1) Gestational diabetes mellitus: COMMENT: ON Insulin (2) : QUALIFIERS: Weeks of gestation: 34 weeks Qualified Code(s): Z3A.34 - 34 weeks gestation of COMMENT: discussed genetic & carrier testing(undecided at this time) (3) Supervision of high-risk : QUALIFIERS: Trimester: second trimester Qualified Code(s): O09.92 - Supervision of high risk , unspecified, second trimester COMMENT: PRR, , DENNIS 08/17/24, [place] Barrios Eliza (4) Non-reactive NST (non-stress test):
== END 2024-07-02 13:00 | disposition home or self-care (01) ==
LOC: WPOUT 11:18 → WP 11:20
PROVIDERS: PCP Nurse Practitioner Family; Referring Provider Obstetrics & Gynecology; Visit Provider Obstetrics & Gynecology
DX: O24.419 Gestational diabetes mellitus in pregnancy, unspecified control (principal); Z3A.34 34 weeks gestation of pregnancy
CPT/HCPCS: 59025; 59050; 76819; 99221; G0378

== ENCOUNTER → 2024-07-23 | Outpatient (CLI) | payer MEDICAID, SELFPAY | END | disposition home or self-care (01) | LOC: LABSPEC 10:57 | PROVIDERS: PCP Nurse Practitioner Family; Referring Provider Advanced Practice Midwife; Visit Provider Advanced Practice Midwife | DX: Z34.93 Encounter for supervision of normal pregnancy, unspecified, third trimester (principal) | CPT/HCPCS: 87081 ==

== ENCOUNTER 2024-08-11 07:16 | Inpatient (IN) | payer MEDICAID, SELFPAY ==
[2024-08-11] VITALS (37 sets, daily range): BP systolic 100–129; BP diastolic 50–78; PULSE 68–111; RESP 16; TEMP 36.2–37.2; O2SAT 94–100; BMI 35.9
[2024-08-11 08:13] LABS: Absolute Lymphocyte Count 1.89 X10^3/uL (0.83-4.51); Absolute Neutrophil Count 6.6 X10^3/uL (2.0-7.7); Basophil# 0.04 X10^3/uL; Basophil% 0.4 % (0-1); Eosinophil# 0.18 X10^3/uL; Eosinophils% 1.9 % (0-5); Hematocrit 31.4 % (37-47); Lymphocyte # 1.89 X10^3/ul (0.83-4.51); Mean Corpuscular Hgb 31.8 pg (27.0-32.0); Mean Corpuscular Volume 90.8 fL (81-99); Mean Platelet Vol. 10.3 fl (6.2-12.0); Monocyte# 0.64 X10^3/uL; Monocyte% 6.8 % (0-10); NRBC Flagged by Analyzer 0 % (0-5); Neutrophil # 6.56 X10^3/uL (2.7-7.7); Neutrophil % 69.6 % (47-70); Platelet Count 219 K/mm3 (150-450); RBC Distribution Width CV 13.8 % (11.6-14.6); RBC Distribution Width SD 45.8 fl (35.1-43.9); Red Blood Count 3.46 M/mm3 (4.2-5.4); White Blood Count 9.4 K/mm3 (4.4-11.0)
[2024-08-11 08:33] LABS: Bedside Glucose 111 mg/dL (74-106)
[2024-08-11 08:51] LABS: Syphilis Antibodies Non-reactive
[2024-08-11] MEDS: 0.9% Normal Saline Single 100 ML IV.SOLN. INTRA-UTER (09:12)
[2024-08-11] MEDS: Lactated Ringers 1,000 ML 50 ML IV (09:12)
[2024-08-11] MEDS: Oxytocin 15 Units/NS 250ml 15 UNITS/250 ML IV.SOLN 2 UNITS IV (09:13)
[2024-08-11 09:36] LABS: Bedside Glucose 89 mg/dL (74-106)
[2024-08-11 10:32] LABS: Bedside Glucose 85 mg/dL (74-106)
[2024-08-11 14:45] LABS: Bedside Glucose 86 mg/dL (74-106)
[2024-08-11 18:13] LABS: Bedside Glucose 75 mg/dL (74-106)
[2024-08-11 19:13] LABS: Bedside Glucose 92 mg/dL (74-106)
[2024-08-11] MEDS: Oxytocin 15 Units/NS 250ml 15 UNITS/250 ML IV.SOLN 83 UNITS IV (20:05)
[2024-08-11 20:11] LABS: Bedside Glucose 109 mg/dL (74-106)
[2024-08-11] MEDS: Acetaminophen 500 MG Tablet 1000 MG PO (23:49)
[2024-08-12 03:32] VITALS: BP 118/79; PULSE 80; RESP 16; TEMP 36.4
[2024-08-12] MEDS: Acetaminophen 500 MG Tablet 1000 MG PO (05:22)
[2024-08-12 06:10] LABS: Bedside Glucose 90 mg/dL (74-106)
[2024-08-12 08:51] VITALS: BP 106/72; PULSE 68; RESP 16; TEMP 36.4; O2SAT 96
[2024-08-12 11:58] VITALS: BP 119/71; PULSE 57; RESP 16; TEMP 36.1; O2SAT 96
[2024-08-12 16:40] VITALS: BP 115/81; PULSE 71; RESP 16; TEMP 37; O2SAT 97
[2024-08-12 20:58] VITALS: BP 123/75; PULSE 74; RESP 16; TEMP 36.9; O2SAT 98
== END 2024-08-12 21:57 | disposition home or self-care (01) | DRG 560 ==
PROVIDERS: Admitting Provider Obstetrics & Gynecology; PCP Nurse Practitioner Family; Referring Provider Obstetrics & Gynecology; Visit Provider Obstetrics & Gynecology
DX: O24.414 Gestational diabetes mellitus in pregnancy, insulin controlled (principal); Z37.0 Single live birth; O40.3XX0 Polyhydramnios, third trimester, not applicable or unspecified; N96 Recurrent pregnancy loss; O34.219 Maternal care for unspecified type scar from previous cesarean delivery; Z3A.38 38 weeks gestation of pregnancy; O70.0 First degree perineal laceration during delivery; O99.02 Anemia complicating childbirth
CPT/HCPCS: 59025; 59050; 82962; 85025; 86780; 86850; 86900; 86901; 99221; J7120; G0378